=== PATIENT | male | born 1965 ===

== ENCOUNTER 2018-06-24 05:15 | Day surgery (SDC) | payer OTHER ==
[~2018-06-24 05:15] MED LIST: ATACAND32 MG PO; COREG CR20 MG PO; LIPITOR20 MG PO; LISINOPRIL20 MG PO
== END 2018-06-24 16:10 | disposition home or self-care (01) ==
LOC: CIR.AMB 05:15
DX: K64.8 Other hemorrhoids (principal)

== ENCOUNTER 2018-10-16 09:09 | Day surgery (SDC) | payer OTHER | END 2018-10-16 13:30 | disposition home or self-care (01) | LOC: AMB-ENDOS 09:09 | DX: K57.30 Diverticulosis of large intestine without perforation or abscess without bleeding (principal); K64.0 First degree hemorrhoids ==